=== PATIENT | male | born 1990 | race Two or more races ===

== ENCOUNTER 2017-07-17 21:31 | Emergency (ER) | payer MEDICAID ==
[~2017-07-17] VITALS: Ht 162.6 cm; Wt 81.6 kg
[2017-07-17 21:38] VITALS: BP 129/68
== END 2017-07-17 22:00 | disposition home or self-care (01) ==
LOC: ER 21:33
DX: J45.909 Unspecified asthma, uncomplicated (principal)
CPT/HCPCS: 99283; A4606; Z7610

== ENCOUNTER 2017-12-09 19:58 | Emergency (ER) | payer MEDICAID ==
[~2017-12-09] VITALS: Ht 165.1 cm; Wt 73.5 kg
--- NOTE | 2017-12-09 20:08 | NUR ---
TO BED 1 AMBULATORY C/O MIDSTERNAL PAIN 6/10 WITH JAW AND L ARM NUMBNESS X4 DAYS. SKIN WARM NONDIAPHORETIC. PT AAOX4 NO ACUTE DISTRESS NOTED, RESP EVEN AND UNLABORED. PLACE PT ON CARDIAC MONITORING, CONTINUOUS POX. WILL CONTINUE TO MONITOR PT CLOSELY. PENDING ER MD GONZALEZ.
--- NOTE | 2017-12-09 20:11 | NUR ---
CARMENCITA RANGEL AT BEDSIDE TO CARL[facility] AGUILAR.
[2017-12-09 20:45] LABS: BASOPHILS # (AUTO) 0.1 /CMM (0.0-0.2); EOSINOPHILS # (AUTO) 0.2 /CMM (0.0-0.7); EOSINOPHILS % (AUTO) 1.8 % (0.0-6.0); HEMATOCRIT 46 % (39-51); LYMPHOCYTES # (AUTO) 2.6 /CMM (0.8-4.8); LYMPHOCYTES % (AUTO) 27.7 % (20.0-44.0); MEAN CORPUSCULAR HEMOGLOBIN 30 PG (26.0-33.0); MEAN CORPUSCULAR HGB CONC 35 g/dl (31.0-36.0); MEAN CORPUSCULAR VOLUME 86 fL (80-96); MONOCYTES # (AUTO) 0.5 /CMM (0.1-1.30); MONOCYTES % (AUTO) 5.5 % (2.0-12.0); PLATELET COUNT (AUTO) 289 /CMM (150-450); RDW COEFFICIENT OF VARIATION 11.9 (11.5-15.0); RED BLOOD CELL COUNT(AUTO) 5.37 MIL/uL (4.5-6.0); WHITE BLOOD COUNT (AUTO) 9.4 K/uL (4.3-11.0)
--- NOTE | 2017-12-09 20:45 | NUR ---
BLOOD DRAWN BY TOWER HELPER.
[2017-12-09 20:55] LABS: CALCIUM, SERUM 9.3 mg/dL (8.5-10.1); CARBON DIOXIDE 27 mmol/L (21-32); CHLORIDE 103 mmol/L (98-107); CREATININE 0.7 mg/dL (0.6-1.3); GLUCOSE 138 mg/dL (74-106); POTASSIUM 3.5 mmol/L (3.5-5.1); SODIUM SERUM 139 mmol/L (136-145); UREA NITROGEN, BLOOD 6 mg/dL (7-18)
[2017-12-09 21:00] LABS: INR 0.94 (0.87-1.13); PROTHROMBIN TIME 9.8 SECS (9.5-12.7)
[2017-12-09 21:04] LABS: TROPONIN I < 0.017 ng/mL (0.00-0.056)
[2017-12-09] MEDS ORDERED: MAG HYDROX/AL HYDROX/SIMETH 30 ML UDC PO ONE (21:30)
[2017-12-09] MEDS ORDERED: LIDOCAINE VISCOUS 2% UD 15 ML UDC MM ONE (21:30)
--- NOTE | 2017-12-09 21:48 | NUR ---
Patient discharged to home in stable condition. Written and verbal after care instructions given. Patient verbalizes understanding of instruction. ambulatory with a steady gait
[2017-12-09 21:49] VITALS: BP 127/59
== END 2017-12-09 21:50 | disposition home or self-care (01) ==
LOC: ER 20:03
DX: R07.2 Precordial pain (principal); K29.70 Gastritis, unspecified, without bleeding; J45.909 Unspecified asthma, uncomplicated
CPT/HCPCS: 36415; 71045; 80048; 82962; 84484; 85025; 85730; 93005; 99285; A4606; Z7610

== ENCOUNTER 2019-03-22 18:00 | Emergency (ER) | payer MEDICAID ==
[~2019-03-22] VITALS: Ht 162.6 cm; Wt 66.7 kg
--- NOTE | 2019-03-22 18:27 | NUR ---
"Right testicle pain on/off x1mo worse today". AOX4, AMB, VSS, RR EVEN AND UNLABORED ON RA. SKIN INTACT, NO ACUTE DISTRESS NOTED. READY FOR EVAL.
[2019-03-22] MEDS ORDERED: IBUPROFEN 600 MG TABLET PO ONE ×2 (18:30→18:36)
[2019-03-22 18:40] LABS: BASOPHILS # (AUTO) 0.1 /CMM (0.0-0.2); BASOPHILS % (AUTO) 0.7 % (0.0-2.0); EOSINOPHILS % (AUTO) 5.1 % (0.0-6.0); HEMATOCRIT 43 % (39-51); HEMOGLOBIN 15.3 g/dL (13.5-17.5); LYMPHOCYTES # (AUTO) 2.6 /CMM (0.8-4.8); LYMPHOCYTES % (AUTO) 27.3 % (20.0-44.0); MEAN CORPUSCULAR HGB CONC 35 g/dl (31.0-36.0); MEAN CORPUSCULAR VOLUME 87 fL (80-96); MONOCYTES # (AUTO) 0.7 /CMM (0.1-1.30); MONOCYTES % (AUTO) 7.3 % (2.0-12.0); NEUTROPHILS # (AUTO) 5.6 /CMM (1.8-8.9); NEUTROPHILS % (AUTO) 59.6 % (43.0-81.0); PLATELET COUNT (AUTO) 327 /CMM (150-450); RED BLOOD CELL COUNT(AUTO) 4.96 MIL/uL (4.5-6.0); WHITE BLOOD COUNT (AUTO) 9.4 K/uL (4.3-11.0)
--- NOTE | 2019-03-22 18:45 | NUR ---
CORN HUSKER MACHINE OPERATOR AT BEDSIDE
--- NOTE | 2019-03-22 18:59 | NUR ---
URINE SENT TO STAT LAB
[2019-03-22 19:03] LABS: CALCIUM, SERUM 8.7 mg/dL (8.5-10.1); CREATININE 0.9 mg/dL (0.6-1.3); POTASSIUM 3.8 mmol/L (3.5-5.1)
[2019-03-22 19:03] LABS: APPEARANCE,URINE Clear (CLEAR); BILIRUBIN,URINE Negative (NEGATIVE); BLOOD, URINE Negative Ery/uL (NEGATIVE); COLOR,URINE Yellow (YELLOW); KETONES,URINE Negative (NEGATIVE); LEUKOCYTE ESTERASE ,URINE Negative (NEGATIVE); NITRITE, URINE Negative (NEGATIVE); PROTEIN,URINE Negative (NEGATIVE); UGLUCOSE Negative (NEGATIVE); UROBILINOGEN,URINE 0.2 EU/dL (0.2)
--- NOTE | 2019-03-22 19:30 | NUR ---
Patient discharged to home in stable condition. Written and verbal after care instructions given. Patient verbalizes understanding of instruction.
[2019-03-22 20:11] VITALS: BP 142/84
== END 2019-03-22 19:30 | disposition home or self-care (01) ==
LOC: ER 18:02 → UNDOADMIN 20:28 → TELE 20:28 → TELE1 20:34 → TELE 20:34
DX: R30.0 Dysuria (principal); J45.909 Unspecified asthma, uncomplicated; Z76.0 Encounter for issue of repeat prescription; Z87.891 Personal history of nicotine dependence
CPT/HCPCS: 36415; 76770-TC; 76870-TC; 80048-TC; 81000-TC; 85025-TC; 87491; 87591

== ENCOUNTER 2019-04-01 03:17 | Emergency (ER) | payer MEDICAID ==
[~2019-04-01] VITALS: Ht 165.1 cm; Wt 66.7 kg
[2019-04-01 03:31] VITALS: BP 131/75
[2019-04-01] MEDS ORDERED: ACETAMINOPHEN 325 MG TABLET PO ONE (04:00)
[2019-04-01] MEDS ORDERED: ACETAMINOPHEN 325 MG TABLET ONE (04:15)
--- NOTE | 2019-04-01 04:28 | NUR ---
RADIOLOGY AT BEDSIDE FOR XRAY
--- NOTE | 2019-04-01 05:23 | NUR ---
CALLED [facility] TO HAVE X-RAY READ.
== END 2019-04-01 07:59 | disposition home or self-care (01) ==
LOC: ER 03:19
DX: S93.491A Sprain of other ligament of right ankle, initial encounter (principal); J45.909 Unspecified asthma, uncomplicated; X50.1XXA Overexertion from prolonged static or awkward postures, initial encounter; Y93.66 Activity, soccer; Y92.39 Other specified sports and athletic area as the place of occurrence of the external cause; Y99.8 Other external cause status
CPT/HCPCS: 73610-TC; 73630-TC

== ENCOUNTER 2019-10-17 00:12 | Emergency (ER) | payer MEDICAID ==
[~2019-10-17] VITALS: Ht 162.6 cm; Wt 81.6 kg
--- NOTE | 2019-10-17 00:31 | NUR ---
CINDA FROM HOME. TO ER BED 9. AAOX4. NO RESP DISTRESS. AMBULATORY. CAME IN FOR MEDICATION REFILL FOR ASTHMA. PT STATES HE RAN OUT OF MEDS. USING INHALER AND NEBULIZER. PT ALSO C/O BACK PAIN. NOTED TENDERNESS OVER COSTOVERTIBRAL AREA UPOM PERCUSSION. AWAITING MD FOR EVAL.
[2019-10-17 01:16] LABS: APPEARANCE,URINE Clear (CLEAR); BILIRUBIN,URINE Negative (NEGATIVE); BLOOD, URINE Negative Ery/uL (NEGATIVE); COLOR,URINE Yellow (YELLOW); KETONES,URINE Negative (NEGATIVE); LEUKOCYTE ESTERASE ,URINE Negative (NEGATIVE); NITRITE, URINE Negative (NEGATIVE); PROTEIN,URINE Trace mg/dl (NEGATIVE); UGLUCOSE Negative (NEGATIVE); UROBILINOGEN,URINE 0.2 EU/dL (0.2)
--- NOTE | 2019-10-17 02:00 | NUR ---
PRESCRIPTION GIVEN AND EXPLAINED TO PATIENT.
[2019-10-17 02:01] VITALS: BP 126/72
--- NOTE | 2019-10-17 02:01 | NUR ---
Patient discharged to home in stable condition. Written and verbal after care instructions given. Patient verbalizes understanding of instruction.
[2019-10-17 02:10] LABS: BACTERIA,URINE Rare /HPF (None Seen); RBC,URINE 0-2 /HPF (0-2); SQUAMOUS EPITHELIAL CELL,UR Rare /HPF (None Seen); WBC,URINE 0-2 /HPF (0-3)
== END 2019-10-17 02:02 | disposition home or self-care (01) ==
LOC: ER 00:13
DX: R10.9 Unspecified abdominal pain (principal); M54.5 Low back pain; J45.909 Unspecified asthma, uncomplicated; Z76.0 Encounter for issue of repeat prescription
CPT/HCPCS: 81000-TC

== ENCOUNTER 2021-05-02 03:06 | Emergency (ER) | payer MEDICAID ==
[~2021-05-02] VITALS: Ht 160 cm; Wt 77.1 kg
--- NOTE | 2021-05-02 03:10 | NUR ---
pt bibself c/o abd pain x15 days. Pt aaox4 breathing evenly and unlabored. Pt denies n/v/d. Pt skin warm, dry, and intact. Pt attached to monitor and pox. Pt given blanket and call light within reach
[2021-05-02] MEDS ORDERED: ONDANSETRON HCL/PF 4 MG/2 ML VIAL ONE (03:58)
[2021-05-02] MEDS ORDERED: MORPHINE SULFATE INJ 2 MG/ML DISP.SYRIN ONE (03:58)
[2021-05-02] MEDS ORDERED: MAG HYDROX/AL HYDROX/SIMETH 30 ML UDC PO ONE (04:00)
[2021-05-02] MEDS ORDERED: ONDANSETRON HCL/PF 4 MG/2 ML VIAL IV ONE (04:00)
[2021-05-02] MEDS ORDERED: MORPHINE SULFATE INJ 2 MG/ML DISP.SYRIN IV ONE (04:00)
[2021-05-02] MEDS ORDERED: MAG HYDROX/AL HYDROX/SIMETH 30 ML UDC ONE (04:03)
--- NOTE | 2021-05-02 04:04 | NUR ---
taken to rad
[2021-05-02 04:20] LABS: BASOPHILS % (AUTO) 0.3 % (0.0-2.0); EOSINOPHILS % (AUTO) 1.6 % (0.0-6.0); HEMATOCRIT 44 % (39-51); HEMOGLOBIN 15.1 g/dL (13.5-17.5); MEAN CORPUSCULAR HGB CONC 35 g/dl (31.0-36.0); MEAN CORPUSCULAR VOLUME 88 fL (80-96); MONOCYTES # (AUTO) 0.8 /CMM (0.1-1.30); MONOCYTES % (AUTO) 8.1 % (2.0-12.0); NEUTROPHILS # (AUTO) 5.7 /CMM (1.8-8.9); PLATELET COUNT (AUTO) 284 /CMM (150-450); RED BLOOD CELL COUNT(AUTO) 4.97 MIL/uL (4.5-6.0); WHITE BLOOD COUNT (AUTO) 9.7 K/uL (4.3-11.0)
[2021-05-02 04:24] LABS: BILIRUBIN,URINE NEGATIVE (NEGATIVE); COLOR,URINE YELLOW (YELLOW); LEUKOCYTE ESTERASE ,URINE NEGATIVE (NEGATIVE); NITRITE, URINE NEGATIVE (NEGATIVE); PH,URINE 7.5 (5.0-8.0); PROTEIN,URINE NEGATIVE (NEGATIVE); UGLUCOSE NEGATIVE (NEGATIVE)
[2021-05-02 04:38] LABS: CALCIUM, SERUM 8.9 mg/dL (8.5-10.1); CREATININE 0.9 mg/dL (0.6-1.3); POTASSIUM 3.3 mmol/L (3.5-5.1)
[2021-05-02 04:44] LABS: BILIRUBIN,DIRECT 0.1 mg/dL (0.0-0.2); BILIRUBIN,TOTAL 0.6 mg/dL (0.2-1.0); TOTAL PROTEIN, SERUM 8.2 g/dL (6.4-8.2)
[2021-05-02 05:03] LABS: BACTERIA,URINE None seen /HPF (None Seen); RBC,URINE 0-2 /HPF (0-2); SQUAMOUS EPITHELIAL CELL,UR Few /HPF (None Seen); WBC,URINE 0-2 /HPF (0-3)
[2021-05-02] MEDS ORDERED: OMEP20CA15 PO (05:41)
[2021-05-02] MEDS ORDERED: FAMO-131 PO (05:41)
--- NOTE | 2021-05-02 05:53 | NUR ---
Patient discharged to home in stable condition. Written and verbal after care instructions given. Patient verbalizes understanding of instruction and RX. Pt ambulated out of ED. VSS.
[2021-05-02 05:54] VITALS: BP 142/83
== END 2021-05-02 05:54 | disposition home or self-care (01) ==
LOC: ER 03:06
DX: K29.00 Acute gastritis without bleeding (principal); J45.909 Unspecified asthma, uncomplicated
CPT/HCPCS: 36415; 80048-TC; 80076-TC; 81001; 83690-TC; 85025-TC; J2270; J2405

== ENCOUNTER 2021-10-14 23:58 | Emergency (ER) | payer MEDICAID ==
[~2021-10-14] VITALS: Ht 147.3 cm; Wt 61.7 kg
[~2021-10-14 23:58] MED LIST: FAMO-131 PO; OMEP20CA15 PO
--- NOTE | 2021-10-15 00:49 | NUR ---
BIB SELF C/O TESTICULAR PAIN X1 MONTH. WAS PREVIOUSLY DIAGNOSED WITH TESTICULAR CYST. NO NASUEA, VOMITTING, ABD PAIN. BREATHING IS EVEN AND UNLABORED VITALS STABLE. MD WAS AT THE BEDSIDE FOR EVAL.
[2021-10-15] MEDS ORDERED: IBUPROFEN 400 MG TABLET PO ONE (01:00)
[2021-10-15 01:36] LABS: BILIRUBIN,URINE NEGATIVE (NEGATIVE); COLOR,URINE YELLOW (YELLOW); LEUKOCYTE ESTERASE ,URINE NEGATIVE (NEGATIVE); NITRITE, URINE NEGATIVE (NEGATIVE); PROTEIN,URINE NEGATIVE (NEGATIVE); UGLUCOSE NEGATIVE (NEGATIVE)
[2021-10-15 02:05] LABS: RBC,URINE 0-2 /HPF (0-2); WBC,URINE 0-2 /HPF (0-3)
[2021-10-15 02:06] LABS: BACTERIA,URINE None seen /HPF (None Seen); MUCUS,URINE Few /LPF (None Seen); SQUAMOUS EPITHELIAL CELL,UR Few /HPF (None Seen); URINE AMORPHOUS PHOSPHATES Moderate /HPF (None Seen)
[2021-10-15] MEDS ORDERED: LEVO500T90 PO (02:39)
--- NOTE | 2021-10-15 02:53 | NUR ---
Pt IV line dioscontinued. Patient discharged to home in stable condition. Written and verbal after care instructions given. Patient verbalizes understanding of instruction.
[2021-10-15] MEDS ORDERED: LEVOFLOXACIN (500MG) 500 MG TABLET ONE (02:58)
[2021-10-15] MEDS ORDERED: LEVOFLOXACIN (250MG) 250 MG TABLET PO ONE (03:00)
[2021-10-15 03:05] VITALS: BP 169/105
== END 2021-10-15 02:58 | disposition home or self-care (01) ==
LOC: ER 10-15 00:05
DX: N45.1 Epididymitis (principal); J45.909 Unspecified asthma, uncomplicated; Z79.899 Other long term (current) drug therapy
CPT/HCPCS: 76870-TC; 81001

== ENCOUNTER 2022-01-17 20:21 | Emergency (ER) | payer MEDICAID ==
[~2022-01-17] VITALS: Ht 162.6 cm; Wt 72.6 kg
[~2022-01-17 20:21] MED LIST changes: +LEVO500T90 PO
--- NOTE | 2022-01-17 20:50 | NUR ---
BIBS. L FLANK PAIN & BILAT FLANK PAIN X 1 WEEK, CRAMPING & INTERMITENTPATIENT ALERT AND OIRENTEDX3 AMBULATORY WITH NON LABORED BREATHING.
[2022-01-17] MEDS ORDERED: KETOROLAC TROMETHAMINE INJ 60 MG/2 ML VIAL IM ONE (21:00)
--- NOTE | 2022-01-17 21:00 | NUR ---
BLOOD COLLECTED AND SENT TO LAB
--- NOTE | 2022-01-17 21:00 | NUR ---
URINE COLLECTED AND SENT TO LAB
[2022-01-17] MEDS ORDERED: KETOROLAC TROMETHAMINE INJ 30 MG/ML VIAL ONE (21:01)
[2022-01-17 21:30] LABS: BASOPHILS % (AUTO) 0.3 % (0.0-2.0); EOSINOPHILS % (AUTO) 1.9 % (0.0-6.0); HEMATOCRIT 46 % (39-51); HEMOGLOBIN 16.2 g/dL (13.5-17.5); LYMPHOCYTES # (AUTO) 3.3 K/uL (0.8-4.8); LYMPHOCYTES % (AUTO) 32.1 % (20.0-44.0); MEAN CORPUSCULAR HGB CONC 35 g/dl (31.0-36.0); MEAN CORPUSCULAR VOLUME 86 fL (80-96); MONOCYTES # (AUTO) 0.9 K/uL (0.1-1.30); MONOCYTES % (AUTO) 8.3 % (2.0-12.0); NEUTROPHILS % (AUTO) 57.4 % (43.0-81.0); PLATELET COUNT (AUTO) 284 K/uL (150-450); RED BLOOD CELL COUNT(AUTO) 5.38 MIL/uL (4.5-6.0); WHITE BLOOD COUNT (AUTO) 10.4 K/uL (4.3-11.0)
[2022-01-17 21:31] LABS: BILIRUBIN,URINE SMALL (NEGATIVE); COLOR,URINE YELLOW (YELLOW); LEUKOCYTE ESTERASE ,URINE NEGATIVE (NEGATIVE); NITRITE, URINE NEGATIVE (NEGATIVE); PROTEIN,URINE TRACE mg/dl (NEGATIVE); UGLUCOSE NEGATIVE (NEGATIVE); UROBILINOGEN,URINE 0.2 EU/dL (0.2)
[2022-01-17 21:36] LABS: BACTERIA,URINE None seen /HPF (None Seen); RBC,URINE 0-2 /HPF (0-2); SQUAMOUS EPITHELIAL CELL,UR 0-2 /HPF (None Seen); WBC,URINE 0-2 /HPF (0-3)
[2022-01-17 21:37] LABS: MUCUS,URINE Moderate /LPF (None Seen)
[2022-01-17] MEDS ORDERED: IBUP-1955 PO (22:41)
[2022-01-17] MEDS ORDERED: DOXY100T2 PO (22:41)
[2022-01-17] MEDS ORDERED: CEFTRIAXONE 500 MG VIAL ONE (23:00)
[2022-01-17] MEDS ORDERED: DOXYCYCLINE HYCLATE (100 MG) 100 MG TABLET ONE (23:00)
[2022-01-17] MEDS ORDERED: CEFTRIAXONE 500 MG VIAL IM ONE (23:00)
[2022-01-17] MEDS ORDERED: DOXYCYCLINE HYCLATE (100 MG) 100 MG TABLET PO ONE (23:00)
--- NOTE | 2022-01-17 23:44 | NUR ---
IV removed. Catheter intact and site benign. Pressure and 4x4 applied to site. No bleeding noted.
--- NOTE | 2022-01-17 23:44 | NUR ---
Patient discharged to home in stable condition. Written and verbal after care instructions given. Patient verbalizes understanding of instruction.
[2022-01-17 23:45] VITALS: BP 136/79
[2022-01-18 00:05] LABS: CREATININE 0.9 mg/dL (0.6-1.3); POTASSIUM 3.6 mmol/L (3.5-5.1)
[2022-01-18 12:56] LABS: ALBUMIN 4.6 g/dL (3.4-5.0); BILIRUBIN,DIRECT 0.1 mg/dL (0.0-0.2); BILIRUBIN,TOTAL 0.7 mg/dL (0.2-1.0)
== END 2022-01-17 23:45 | disposition home or self-care (01) ==
LOC: ER 20:23
DX: N53.12 Painful ejaculation (principal); N45.1 Epididymitis; R10.12 Left upper quadrant pain; J45.909 Unspecified asthma, uncomplicated; Z79.899 Other long term (current) drug therapy
CPT/HCPCS: 36415; 74176; 76870; 80048; 80076; 81001; 83690; 85025; 87086; 87491; 87591; 96372 ×2; 99284; J0696; J1885

== ENCOUNTER 2022-02-25 00:35 | Emergency (ER) | payer MEDICAID ==
[~2022-02-25] VITALS: Ht 167.6 cm; Wt 68.0 kg
[~2022-02-25 00:35] MED LIST changes: +DOXY100T2 PO; +IBUP-1955 PO
[2022-02-25] MEDS ORDERED: IBUPROFEN 400 MG TABLET ONE (00:50)
--- NOTE | 2022-02-25 00:54 | NUR ---
TO ER BED 1. BIBSELF C/O L TESTICULAR PAIN X4 DAYS. PAIN IS NON RADIATING. DID NOT TAKE ANYTHING FOR RELIEF. PT CHANGED INTO GOWN. AWAITING MD GONZALEZ
[2022-02-25] MEDS ORDERED: IBUPROFEN 400 MG TABLET PO ONE (01:00)
[2022-02-25 01:23] LABS: BILIRUBIN,URINE NEGATIVE (NEGATIVE); COLOR,URINE YELLOW (YELLOW); LEUKOCYTE ESTERASE ,URINE NEGATIVE (NEGATIVE); NITRITE, URINE NEGATIVE (NEGATIVE); PROTEIN,URINE NEGATIVE (NEGATIVE); UGLUCOSE NEGATIVE (NEGATIVE); UROBILINOGEN,URINE 0.2 EU/dL (0.2)
--- NOTE | 2022-02-25 01:33 | NUR ---
US TECH AT PT'S BEDSIDE
[2022-02-25 02:45] VITALS: BP 128/70
[2022-02-25] MEDS ORDERED: IBUP-1957 PO (03:44)
--- NOTE | 2022-02-25 04:04 | NUR ---
Patient discharged to home in stable condition. Rx Written and verbal after care instructions given. Patient verbalizes understanding of instruction.
== END 2022-02-25 04:08 | disposition home or self-care (01) ==
LOC: ER 00:39
DX: N43.2 Other hydrocele (principal); N43.42 Spermatocele of epididymis, multiple; J45.909 Unspecified asthma, uncomplicated; Z79.1 Long term (current) use of non-steroidal anti-inflammatories (NSAID); Z79.899 Other long term (current) drug therapy
CPT/HCPCS: 76870-TC

== ENCOUNTER 2022-09-17 19:51 | Emergency (ER) | payer MEDICAID ==
[~2022-09-17] VITALS: Ht 162.6 cm; Wt 77.1 kg
[~2022-09-17 19:51] MED LIST changes: +IBUP-1957 PO
--- NOTE | 2022-09-17 21:20 | NUR ---
TO ER BED 16. BIBSELF C/O LEFT GROIN/TESTICLE PAIN X5 DAYS. & SOB HX ASTHMA. PT IS ALERT AND ORIENTED. RR EVEN AND NON LABORED, O2 SAT 100% ROOM AIR. CONNECTED TO MONITOR. AWAITING MD GONZALEZ
[2022-09-17] MEDS ORDERED: predniSONE 20 MG TABLET ONE (21:23)
[2022-09-17] MEDS: IPRATROPIUM NEB FS 0.5 MG/2.5 ML AMPUL.NEB NEB ONE (21:25)
[2022-09-17] MEDS: ALBUTEROL FS 2.5 MG/3 ML VIAL.NEB NEB ONE (21:26)
--- NOTE | 2022-09-17 21:29 | NUR ---
RT AT BEDSIDE
[2022-09-17] MEDS ORDERED: ALBUTEROL FS 2.5 MG/3 ML VIAL.NEB ONE (21:31)
[2022-09-17] MEDS ORDERED: IPRATROPIUM NEB FS 0.5 MG/2.5 ML AMPUL.NEB ONE (21:31)
[2022-09-17] MEDS: predniSONE 20 MG TABLET PO ONE (21:36)
[2022-09-17] MEDS ORDERED: ALBU2.5V13 NEB (21:36)
[2022-09-17] MEDS ORDERED: PRED20TA PO (21:36)
[2022-09-17] MEDS ORDERED: NABU-141 PO (21:36)
[2022-09-17] MEDS ORDERED: KETOROLAC TROMETHAMINE INJ 60 MG/2 ML VIAL IM ONE (21:45)
[2022-09-17] MEDS: KETOROLAC TROMETHAMINE INJ 60 MG/2 ML VIAL IM ONE (21:47)
--- NOTE | 2022-09-17 22:10 | NUR ---
Patient discharged to home in stable condition. RX Written and verbal after care instructions given. Patient verbalizes understanding of instruction. PT ambulatory with a steady gait
[2022-09-17 22:26] VITALS: BP 137/70
[2022-09-17] MEDS ORDERED: ALBU2.5V38 NEB (23:21)
== END 2022-09-17 23:27 | disposition home or self-care (01) ==
LOC: ER 19:57
DX: K40.90 Unilateral inguinal hernia, without obstruction or gangrene, not specified as recurrent (principal); J45.901 Unspecified asthma with (acute) exacerbation; J45.909 Unspecified asthma, uncomplicated; Z79.51 Long term (current) use of inhaled steroids; Z79.899 Other long term (current) drug therapy
CPT/HCPCS: 99285; 94644; J7512; J1885

== ENCOUNTER 2023-08-13 22:41 | Emergency (ER) | payer MEDICAID ==
[~2023-08-13] VITALS: Ht 160 cm; Wt 77.1 kg
[~2023-08-13 22:41] MED LIST changes: +ALBU2.5V13 NEB; +ALBU2.5V38 NEB; +NABU-141 PO; +PRED20TA PO
[2023-08-13 22:59] VITALS: BP 154/88; TEMP 98
[2023-08-13] MEDS ORDERED: ALBU8.5H8 INH (23:10)
[2023-08-13] MEDS ORDERED: TERB250T52 PO (23:10)
[2023-08-13 23:56] LABS: APPEARANCE,URINE SLIGHTLY CLOUDY (CLEAR); COLOR,URINE YELLOW (YELLOW); LEUKOCYTE ESTERASE ,URINE 2+ (NEGATIVE); NITRITE, URINE NEGATIVE (NEGATIVE); UROBILINOGEN,URINE 0.2 EU/dL (0.2)
[2023-08-13 23:57] LABS: BILIRUBIN,URINE TRACE (NEGATIVE); BLOOD, URINE 2+ Ery/uL (NEGATIVE); KETONES,URINE NEGATIVE (NEGATIVE); PROTEIN,URINE TRACE mg/dl (NEGATIVE); UGLUCOSE NEGATIVE (NEGATIVE)
[2023-08-13 23:59] LABS: ADD URINE CULTURE YES; BACTERIA,URINE Few /HPF (None Seen); SQUAMOUS EPITHELIAL CELL,UR Rare /HPF (None Seen)
[2023-08-14] MEDS ORDERED: CIPR500T5 PO ×2 (00:01→00:18)
[2023-08-14] MEDS ORDERED: TERB250T52 PO (00:18)
[2023-08-14] MEDS ORDERED: ALBU8.5H8 INH (00:18)
[2023-08-14 00:20] VITALS: O2SAT 97
== END 2023-08-14 00:21 | disposition home or self-care (01) ==
LOC: ER 22:43
DX: B35.1 Tinea unguium (principal); B35.3 Tinea pedis; J45.909 Unspecified asthma, uncomplicated
CPT/HCPCS: 81001; 87086-TC

== ENCOUNTER 2023-10-17 23:52 | Emergency (ER) | payer MEDICAID ==
[~2023-10-17] VITALS: Ht 160 cm; Wt 81.6 kg
[~2023-10-17 23:52] MED LIST changes: +ALBU8.5H8 INH; +CIPR500T5 PO; +TERB250T52 PO
[2023-10-18 01:08] VITALS: O2SAT 97
[2023-10-18] MEDS ORDERED: ALBUTEROL FS 2.5 MG/3 ML VIAL.NEB ONE (01:12)
[2023-10-18] MEDS ORDERED: IPRATROPIUM NEB FS 0.5 MG/2.5 ML AMPUL.NEB ONE (01:12)
[2023-10-18 01:23] VITALS: O2SAT 100
[2023-10-18] MEDS ORDERED: predniSONE 20 MG TABLET ONE (01:26)
[2023-10-18] MEDS ORDERED: KETOROLAC TROMETHAMINE INJ 30 MG/ML VIAL ONE (01:26)
[2023-10-18] MEDS ORDERED: ALBUTEROL FS 2.5 MG/3 ML VIAL.NEB NEB ONE (01:30)
[2023-10-18] MEDS ORDERED: predniSONE 20 MG TABLET PO ONE (01:30)
[2023-10-18] MEDS ORDERED: KETOROLAC TROMETHAMINE INJ 60 MG/2 ML VIAL IM ONE (01:30)
[2023-10-18] MEDS ORDERED: IPRATROPIUM NEB FS 0.5 MG/2.5 ML AMPUL.NEB NEB ONE (01:30)
[2023-10-18] MEDS ORDERED: ALBU6.7H9 INH (02:32)
[2023-10-18] MEDS ORDERED: PRED50TA PO (02:32)
[2023-10-18] MEDS ORDERED: NAPR-1164 PO (02:32)
[2023-10-18] MEDS ORDERED: ALBU1.257 NEB (02:32)
[2023-10-18 02:40] VITALS: BP 134/82; TEMP 98; O2SAT 100
== END 2023-10-18 02:44 | disposition home or self-care (01) ==
LOC: ER 23:56
DX: J45.901 Unspecified asthma with (acute) exacerbation (principal); B34.9 Viral infection, unspecified; G56.02 Carpal tunnel syndrome, left upper limb; J45.909 Unspecified asthma, uncomplicated; Z79.51 Long term (current) use of inhaled steroids; Z79.899 Other long term (current) drug therapy; Z20.822 Contact with and (suspected) exposure to COVID-19
CPT/HCPCS: 99284; 71045; 87426; 87804 ×2; 94640; J7512; J1885; C9803

== ENCOUNTER 2024-01-01 09:07 | Emergency (ER) | payer MEDICAID, OTHER ==
[~2024-01-01] VITALS: Ht 165.1 cm; Wt 85.3 kg
[~2024-01-01 09:07] MED LIST changes: +ALBU1.257 NEB; +ALBU6.7H9 INH; +NAPR-1164 PO; +PRED50TA PO
[2024-01-01] MEDS ORDERED: IBUPROFEN 600 MG TABLET ONE (09:50)
[2024-01-01] MEDS ORDERED: IBUPROFEN 600 MG TABLET PO ONE (10:00)
[2024-01-01 10:05] LABS: APPEARANCE,URINE CLEAR (CLEAR); BILIRUBIN,URINE NEGATIVE (NEGATIVE); BLOOD, URINE NEGATIVE Ery/uL (NEGATIVE); COLOR,URINE YELLOW (YELLOW); KETONES,URINE NEGATIVE (NEGATIVE); LEUKOCYTE ESTERASE ,URINE NEGATIVE (NEGATIVE); NITRITE, URINE NEGATIVE (NEGATIVE); PROTEIN,URINE NEGATIVE (NEGATIVE); UGLUCOSE NEGATIVE (NEGATIVE); UROBILINOGEN,URINE 0.2 EU/dL (0.2)
[2024-01-01 11:30] VITALS: BP 128/72; TEMP 97.8; O2SAT 97
== END 2024-01-01 11:32 | disposition home or self-care (01) ==
LOC: ER 09:17
DX: N50.82 Scrotal pain (principal); J45.909 Unspecified asthma, uncomplicated; Z98.890 Other specified postprocedural states
CPT/HCPCS: 76870-TC

== ENCOUNTER 2024-07-07 23:19 | Emergency (ER) | payer OTHER ==
[~2024-07-07] VITALS: Ht 165.1 cm; Wt 85.3 kg
[2024-07-08] MEDS: IV NS 0.9% 1,000 ML BAG IV ONE (00:46)
[2024-07-08] MEDS: KETOROLAC TROMETHAMINE 15 MG/ML VIAL IV ONE (00:47)
[2024-07-08] MEDS ORDERED: KETOROLAC TROMETHAMINE INJ 30 MG/ML VIAL ONE (00:48)
[2024-07-08 00:57] LABS: BASOPHILS % (AUTO) 0.4 % (0.0-2.0); EOSINOPHILS # (AUTO) 0.2 K/uL (0.0-0.7); EOSINOPHILS % (AUTO) 2.1 % (0.0-6.0); HEMATOCRIT 45 % (39-51); HEMOGLOBIN 15.6 g/dL (13.5-17.5); LYMPHOCYTES # (AUTO) 3.3 K/uL (0.8-4.8); LYMPHOCYTES % (AUTO) 34.1 % (20.0-44.0); MEAN CORPUSCULAR HEMOGLOBIN 30 PG (26.0-33.0); MEAN CORPUSCULAR HGB CONC 35 g/dl (31.0-36.0); MEAN CORPUSCULAR VOLUME 86 fL (80-96); MONOCYTES # (AUTO) 0.8 K/uL (0.1-1.30); MONOCYTES % (AUTO) 8.3 % (2.0-12.0); NEUTROPHILS # (AUTO) 5.3 K/uL (1.8-8.9); NEUTROPHILS % (AUTO) 55.1 % (43.0-81.0); PLATELET COUNT (AUTO) 269 K/uL (150-450); RED BLOOD CELL COUNT(AUTO) 5.24 MIL/uL (4.5-6.0); RED CELL DISTRIBUTION WIDTH 12.9 % (11.5-15.0); WHITE BLOOD COUNT (AUTO) 9.6 K/uL (4.3-11.0)
[2024-07-08 01:04] LABS: APPEARANCE,URINE CLEAR (CLEAR); BILIRUBIN,URINE 1+ (NEGATIVE); BLOOD, URINE NEGATIVE Ery/uL (NEGATIVE); COLOR,URINE YELLOW (YELLOW); KETONES,URINE TRACE mg/dL (NEGATIVE); LEUKOCYTE ESTERASE ,URINE NEGATIVE (NEGATIVE); NITRITE, URINE NEGATIVE (NEGATIVE); PROTEIN,URINE TRACE mg/dl (NEGATIVE); UGLUCOSE NEGATIVE (NEGATIVE); UROBILINOGEN,URINE 0.2 EU/dL (0.2)
[2024-07-08 01:07] LABS: CALCIUM, SERUM 9.4 mg/dL (8.5-10.1); CREATININE 0.9 mg/dL (0.6-1.3); POTASSIUM 3.3 mmol/L (3.5-5.1)
[2024-07-08 01:10] LABS: ADD URINE CULTURE NO; BACTERIA,URINE Rare /HPF (None Seen); RBC,URINE 0-2 /HPF (0-2); SQUAMOUS EPITHELIAL CELL,UR Few /HPF (None Seen)
[2024-07-08 01:12] LABS: ALBUMIN 4.2 g/dL (3.4-5.0); BILIRUBIN,DIRECT 0.2 mg/dL (0.0-0.2); TOTAL PROTEIN, SERUM 8.5 g/dL (6.4-8.2)
[2024-07-08] MEDS ORDERED: IBUP-1953 PO (02:28)
[2024-07-08 02:39] VITALS: BP 130/80; TEMP 98.1; O2SAT 98
== END 2024-07-08 02:40 | disposition home or self-care (01) ==
LOC: ER 23:26
DX: K76.0 Fatty (change of) liver, not elsewhere classified (principal); R10.32 Left lower quadrant pain; J45.909 Unspecified asthma, uncomplicated; F19.10 Other psychoactive substance abuse, uncomplicated
CPT/HCPCS: 99285; 74176; 96374; 96361; 85025; 80048; 83690; 80076; 81001; 36415; J1885; J7030

== ENCOUNTER 2025-04-20 21:24 | Emergency (ER) | payer MEDICAID, OTHER ==
[~2025-04-20] VITALS: Ht 162.6 cm; Wt 79.4 kg
[~2025-04-20 21:24] MED LIST changes: +IBUP-1953 PO
[2025-04-20] MEDS ORDERED: AZITHROMYCIN 250 MG TABLET ONE (22:33)
[2025-04-20] MEDS ORDERED: CEFTRIAXONE 500 MG VIAL ONE (22:33)
[2025-04-20] MEDS ORDERED: LIDOCAINE 1% INJ 50 ML MDV IJ ONE (22:35)
[2025-04-20] MEDS: CEFTRIAXONE 500 MG VIAL IM ONE (22:47)
[2025-04-20] MEDS: AZITHROMYCIN 250 MG TABLET PO ONE (22:49)
[2025-04-20 22:57] LABS: APPEARANCE,URINE CLEAR (CLEAR); BILIRUBIN,URINE NEGATIVE (NEGATIVE); BLOOD, URINE NEGATIVE Ery/uL (NEGATIVE); COLOR,URINE YELLOW (YELLOW); KETONES,URINE NEGATIVE (NEGATIVE); LEUKOCYTE ESTERASE ,URINE NEGATIVE (NEGATIVE); NITRITE, URINE NEGATIVE (NEGATIVE); PROTEIN,URINE NEGATIVE (NEGATIVE); UGLUCOSE NEGATIVE (NEGATIVE); UROBILINOGEN,URINE 0.2 EU/dL (0.2)
[2025-04-20 23:10] VITALS: BP 131/79; TEMP 98.6; O2SAT 98
[2025-04-22 17:07] LABS: CHLAMYDIA TRACHOMATIS NAA Negative (Negative); NEISSERIA GONORRHOEAE NAA Negative (Negative)
== END 2025-04-20 23:11 | disposition home or self-care (01) ==
LOC: ER 21:34
DX: R30.0 Dysuria (principal); J45.909 Unspecified asthma, uncomplicated; Z79.1 Long term (current) use of non-steroidal anti-inflammatories (NSAID); Z79.52 Long term (current) use of systemic steroids; Z79.899 Other long term (current) drug therapy
CPT/HCPCS: 99283; 96372; 87086; 81003; 87491 ×2; 87591; J3490; J0696

== ENCOUNTER 2025-09-24 18:35 | Emergency (ER) | payer MEDICAID, OTHER ==
[~2025-09-24] VITALS: Ht 162.6 cm; Wt 79.4 kg
[2025-09-24 19:07] LABS: APPEARANCE,URINE CLEAR (CLEAR); BLOOD, URINE NEGATIVE Ery/uL (NEGATIVE); LEUKOCYTE ESTERASE ,URINE NEGATIVE (NEGATIVE); NITRITE, URINE NEGATIVE (NEGATIVE); UGLUCOSE NEGATIVE (NEGATIVE)
[2025-09-24] MEDS ORDERED: ACYC-108 PO (19:07)
[2025-09-24 19:30] LABS: PLATELET COUNT (AUTO) 234 K/uL (150-450); RED BLOOD CELL COUNT(AUTO) 4.68 MIL/uL (4.5-6.0); RED CELL DISTRIBUTION WIDTH 12.8 % (11.5-15.0); WHITE BLOOD COUNT (AUTO) 7.5 K/uL (4.3-11.0)
[2025-09-24] MEDS ORDERED: HYDROCODONE/APAP 5/325MG TABLET ONE (19:30)
[2025-09-24] MEDS: HYDROCODONE/APAP 5/325MG TABLET PO ONE (19:32)
[2025-09-24 19:36] LABS: CALCIUM, SERUM 8.4 mg/dL (8.5-10.1); CREATININE 0.8 mg/dL (0.6-1.3); SODIUM SERUM 141.0 mmol/L (136-145); UREA NITROGEN, BLOOD 9.0 mg/dL (7-18)
[2025-09-24 19:42] LABS: ADD URINE CULTURE YES; SQUAMOUS EPITHELIAL CELL,UR Few /HPF (None Seen)
[2025-09-24 19:42] LABS: ASPARTATE AMINOTRANSFERASE 11.0 U/L (15-37); TOTAL PROTEIN, SERUM 7.4 g/dL (6.4-8.2)
[2025-09-24] MEDS ORDERED: IBUP-1957 PO (19:52)
[2025-09-24] MEDS ORDERED: POLY17PO4 PO (19:52)
[2025-09-24 19:59] VITALS: BP 121/60; TEMP 98.3; O2SAT 98
== END 2025-09-24 20:00 | disposition home or self-care (01) ==
LOC: ER 18:39
DX: R10.32 Left lower quadrant pain (principal); B02.9 Zoster without complications; J45.909 Unspecified asthma, uncomplicated; K52.9 Noninfective gastroenteritis and colitis, unspecified; K56.699 Other intestinal obstruction unspecified as to partial versus complete obstruction; Z79.1 Long term (current) use of non-steroidal anti-inflammatories (NSAID); Z79.52 Long term (current) use of systemic steroids; Z79.899 Other long term (current) drug therapy
CPT/HCPCS: 36415; 80048-TC; 80076-TC; 81001; 83690-TC; 85025-TC; 87086-TC